=== PATIENT | female | born 1970 | race Caucasian/White ===

== ENCOUNTER 2024-03-13 23:26 | Emergency (ER) | payer OTHER, MEDICAID, SELFPAY ==
[2024-03-13 23:42] VITALS: BP 139/62; PULSE 72; RESP 18; TEMP 36.2; O2SAT 96; BMI 25.2
--- NOTE | 2024-03-14 00:04 | DI.RAD.S_ITS ---
PROCEDURE: XR LUMBAR SPINE MIN 4V INDICATIONS: Worsening chronic lumbar back pain TECHNIQUE: 5 views of the lumbar spine were acquired, including bilateral oblique views. COMPARISON: [facility], CT, CT LUMBAR SPINE WITHOUT CONTRAST, 06/26/2023, 10:31. FINDINGS: Bones: 5 nonrib-bearing vertebrae are present. There is stable bony alignment with unchanged appearance of grade 1 anterolisthesis of L4 on L5 secondary to moderate degenerative changes at this level. Prior CT showed no evidence for pars defects at this level. No acute vertebral body compression fractures. Multilevel lumbar spondylosis with advanced mid and lower lumbar facet arthropathy. No suspicious bony lesions. Soft tissues: Overlying bowel gas pattern is normal. No suspicious soft tissue calcifications. IUD projects in the lower midline pelvis. Surgical clips in the right upper quadrant likely related to prior cholecystectomy. Oblique images: No pars defects. IMPRESSION: Lumbar spine without acute osseous abnormalities. Redemonstration of grade 1 anterolisthesis of L4 on L5 secondary to moderate spondylitic changes at this level. No evidence for pars defects. Dictated by: Mikel Mayo M.D. on 03/14/2024 at 0:35 Approved by: Mikel Mayo M.D. on 03/14/2024 at 0:41
--- NOTE | 2024-03-14 00:04 | ED_ITS ---
HPI - Back Pain/Injury General Chief Complaint: Back Pain/Injury Stated Complaint: back pain Time Seen by Provider: 03/13/24 23:28 Source: patient History of Present Illness HPI Narrative: 53-year-old female presents requesting imaging of her back. Reports chronic back issues, states that 2 years ago she was scheduled to have surgery in [place], but they moved to [place] and she lost her referral. She walked here with her partner who is here for evaluation of right knee pain. She states that she has had increasing pain recently and wants imaging to see if she has hurt her back further. Denies bowel or bladder incontinence, denies saddle anesthesia. Taking Tylenol and ibuprofen as needed for pain at home. States that she has not seen orthopedic surgery since moving to [place] Related Data Previous Rx's Medication Instructions Recorded methocarbamol 500 mg tablet 500 mg PO TID #30 tabs 03/14/24 methylprednisolone 4 mg tablets in See Rx Instructions PO .COMPLEX 03/14/24 a dose pack (Medrol (Spencer)) #21 ea Allergies Allergy/AdvReac Type Severity Reaction Status Date / Time Opioids - Morphine Analogues AdvReac Mild Nausea Verified 03/14/24 00:26 Review of Systems Review of Systems Narrative: See HPI Patient History Social History Smoking Status: Former smoker Smoking Status: Former smoker Substance Use Type: does not use Exam Initial Vital Signs Initial Vital Signs: Vital Signs Temperature 97.1 F L 03/13/24 23:42 Pulse Rate 72 03/13/24 23:42 Respiratory Rate 18 03/13/24 23:42 Blood Pressure 139/62 03/13/24 23:42 Pulse Oximetry 96 03/13/24 23:42 Oxygen Delivery Method Room Air 03/13/24 23:42 Const: Awake, alert, no acute distress, nontoxic appearing MSK: No midline tenderness, full range of motion, pulses equal Skin: Warm, Dry, intact, no rashes Neuro: AO x3, CN II-XII grossly intact, moves all extremities, gait normal Course Orders Ordered: ED Orders 03/14/24 00:04 XR lumbar spine min 4V Stat Discontinued Medications Ketorolac Tromethamine (Ketorolac 30 Mg/Ml Vial) 30 mg IM NOW ONE Stop: 03/14/24 00:29 Last Admin: 03/14/24 00:43 Dose: 30 mg Documented By: EMERY Lidocaine (Lidocaine 5% Patch) 1 each TOP NOW ONE Stop: 03/14/24 00:29 Last Admin: 03/14/24 00:43 Dose: 1 each Documented By: EMERY Methocarbamol (Methocarbamol 500 Mg Tablet) 500 mg PO NOW ONE Stop: 03/14/24 00:29 Last Admin: 03/14/24 00:43 Dose: 500 mg Documented By: EMERY Vital Signs Vital signs: Vital Signs - 8 hr 03/13/24 23:42 03/14/24 01:13 Temperature 97.1 F L 98.4 F Pulse Rate 72 73 Respiratory Rate 18 18 Blood Pressure 139/62 164/91 H Pulse Oximetry 96 96 Oxygen Delivery Method Room Air Room Air MDM - Back Pain/Injury Differential Diagnosis Differential diagnosis: Likely lumbar radiculopathy, sciatica and strain of lumbar region MDM Narrative Medical decision making narrative: Patient here to check to see if her back is worse radiographically. States that her pain is getting worse but she was quite functional, states that she walked at least a mile to get to the hospital from where she was staying. There was no bowel or bladder incontinence, no saddle anesthesia. No indication for advan veronique imaging such as CT or MRI at this time. X-ray imaging ordered, results discussed with the patient. Recommended that patient follow up with Orthopedic surgery locally if she continues to experience back issues and a referral was provided. Steroids and muscle relaxers sent to pharmacy of choice. Discharge Plan Departure Patient Disposition: Home Clinical Impression: Lumbar back pain Instructions: DI for Low Back Pain Activity Restrictions/Additional Instructions: Continue to take Tylenol and ibuprofen as needed for pain. You may use the muscle relaxers as well for additional pain control. Follow up with Orthopedic surgery. Prescriptions: New methocarbamol 500 mg tablet 500 mg PO TID Qty: 30 0RF methylprednisolone [Medrol (Spencer)] 4 mg tablets,dose pack See Rx Instructions .ROUTE .COMPLEX Qty: 21 0RF Rx Instructions: for 6 days Referrals: Jonathan Piedra MD [Physician] - Stand Alone Forms: Patient Portal/API
--- NOTE | 2024-03-14 00:06 | PC.NURSE ---
Pt does report some episodes of leaking out in terms of urinary incontinence.
[2024-03-14] MEDS: methocarbamoL 500 MG TABLET PO (00:43)
[2024-03-14] MEDS: KETOROLAC 30 MG/ML VIAL IM (00:43)
[2024-03-14] MEDS: LIDOCAINE 5% PATCH 1 EACH TOP (00:43)
[2024-03-14 01:13] VITALS: BP 164/91; PULSE 73; RESP 18; TEMP 36.9; O2SAT 96
== END 2024-03-14 01:03 | disposition home or self-care (01) ==
PROVIDERS: Emergency Provider Emergency Medicine
DX: M54.50 Low back pain, unspecified (principal)
CPT/HCPCS: 72110; 96372; 99283; J1885

== ENCOUNTER 2025-01-16 22:57 | Emergency (ER) | payer OTHER, SELFPAY ==
[2025-01-16 23:13] VITALS: BP 169/105; PULSE 70; RESP 15; TEMP 37.1; O2SAT 99; BMI 25.2
--- NOTE | 2025-01-17 02:10 | ED_ITS ---
HPI - General Adult General Chief complaint: Ear Stated complaint: stats bug in rt ear Time Seen by Provider: 01/17/25 01:52 Source: patient Mode of arrival: Ambulatory History of Present Illness HPI narrative: 54-year-old woman with no significant medical issues complains about a bubbling sensation in both ears worse on the right than the left. Increasing over the last 2 weeks. This was not preceded by an upper respiratory infection, she has not had a sore throat or significant nasal congestion. No cough or chills. She does have pain behind the angle of the jaw bilaterally. Related Data Home Medications Medication Instructions Recorded Confirmed duloxetine 20 mg capsule,delayed 20 mg PO DAILY 01/16/25 01/16/25 release paliperidone 1.5 mg 1.5 mg PO BID 01/16/25 01/16/25 tablet,extended release 24 hr Previous Rx's Medication Instructions Recorded amoxicillin 500 mg capsule 500 mg PO TID #21 caps 01/17/25 Allergies Allergy/AdvReac Type Severity Reaction Status Date / Time Opioids - Morphine Analogues AdvReac Mild Nausea Verified 03/14/24 00:26 Review of Systems Review of Systems Narrative: Pertinent positive and negative findings as per HPI Patient History Social History Smoking Status: Current some day smoker Smoking Status: Current some day smoker tobacco type: vaping Exam Initial Vital Signs Initial Vital Signs: Vital Signs Temperature 98.7 F 01/16/25 23:13 Pulse Rate 70 01/16/25 23:13 Respiratory Rate 15 01/16/25 23:13 Blood Pressure 169/105 H 01/16/25 23:13 Pulse Oximetry 99 01/16/25 23:13 Oxygen Delivery Method Room Air 01/16/25 23:13 General: Alert appropriate in no acute distress HEENT: both tympanic membranes are erythematous with effusions. The effusion is more notable on the right in the erythema is more notable the left. There is no tympanic membrane rupture on either side. She is minor anterior cervical adenopathy. Posterior pharynx is unremarkable Respiratory: Able to speak in full sentences, no obvious respiratory distress Skin: No obvious rashes, warm and dry Neurologic: Grossly intact no obvious asymmetries or abnormalities Psych: appropriate insight and affect, cooperative Course Vital Signs Vital signs: Vital Signs - 8 hr 01/16/25 23:13 Temperature 98.7 F Pulse Rate 70 Respiratory Rate 15 Blood Pressure 169/105 H Pulse Oximetry 99 Oxygen Delivery Method Room Air Medical Decision Making MDM Narrative Medical decision making narrative: 54-year-old woman who is concerned that she may have a bug in her ear. Notes that for 2 weeks she has had a bubbling sensation in the ear right more than the left. On exam she has bilateral middle ear effusions with increasing erythema to tympanic membranes bilaterally. Minor anterior cervical adenopathy. No posterior pharyngeal erythema. Is most consistent with otitis media and given the increasing pain and symptoms we will opt to treat with 7 days of oral amoxicillin. Also suggested Sudafed to help with posterior pharyngeal erythema and encourage Eustachian tube drainage. Questions are answered and she is safe for discharge Discharge Plan Departure Patient Disposition: Home Clinical Impression: Otitis media Qualifiers: Otitis media type: suppurative Chronicity: acute Laterality: bilateral Recurrence: non-recurrent Spontaneous tympanic membrane rupture: without spontaneous rupture Qualified Code(s): H66.003 - Acute suppurative otitis media without spontaneous rupture of ear drum, bilateral Instructions: DI for Middle Ear Infection-Adult Activity Restrictions/Additional Instructions: Thank you for coming in today I am glad for both of us that you do not, in fact, have a bug in your ear ;) you do have fluid behind both tympanic membranes which is giving you that crackly sound. Both are a bit red around the edges and I believe that they are beginning to get infected which is why you are having pain down behind the angle of your jaw. I have given you a prescription for amoxicillin, I would recommend completing the 7 day course I would also recommend using Sudafed through the day and try to open your ear canals, like you would on an airplane, to get your middle ear to more effec tively drain. If you find that you are getting worse or develop any new symptoms, please feel free to return to the emergency department for further evaluation. Prescriptions: New amoxicillin 500 mg capsule 500 mg PO TID Qty: 21 0RF No Action duloxetine 20 mg capsule,delayed release(DR/EC) 20 mg PO DAILY paliperidone 1.5 mg tablet extended release 24 hr 1.5 mg PO BID Stand Alone Forms: Patient Portal/API/Survey
[2025-01-17 02:20] VITALS: BP 173/96; PULSE 60; RESP 15; O2SAT 97
== END 2025-01-17 02:20 | disposition home or self-care (01) ==
PROVIDERS: Emergency Provider Emergency Medicine
DX: H66.003 Acute suppurative otitis media without spontaneous rupture of ear drum, bilateral (principal)
CPT/HCPCS: 99281

== ENCOUNTER 2025-06-13 22:08 | Emergency (ER) | payer OTHER, SELFPAY ==
[2025-06-13 22:14] VITALS: BP 152/75; PULSE 60; RESP 17; TEMP 37.2; O2SAT 95; BMI 27.2
--- NOTE | 2025-06-13 22:21 | DI.RAD.S_ITS ---
PROCEDURE: XR CHEST 2V INDICATIONS: productive cough x 1 week TECHNIQUE: 2 views of the chest were acquired. COMPARISON: None. FINDINGS: Surgical changes and devices: None. Lungs and pleura: Lungs are clear. No pleural effusions or pneumothorax. Mediastinum: Mediastinal contours are normal. Heart size is normal. Bones and chest wall: No suspicious bony abnormalities. Soft tissues appear unremarkable. IMPRESSION: No acute cardiopulmonary abnormality is seen. Dictated by: Sin Deshpande M.D. on 06/13/2025 at 22:41 Approved by: Sin Deshpande M.D. on 06/13/2025 at 22:42
[2025-06-13 23:13] LABS: Influenza A - CEPHEID Flu A NEGATIVE (NEGATIVE); Influenza B - CEPHEID Flu B NEGATIVE (NEGATIVE)
[2025-06-13 23:15] LABS: COVID-19 CEPHEID 4-PLEX PCR Negative (Negative)
== END 2025-06-14 00:23 | disposition left against medical advice (07) ==
PROVIDERS: Emergency Provider Emergency Medicine
DX: R05.9 Cough, unspecified (principal); R06.02 Shortness of breath
CPT/HCPCS: 71046; 87637; 99281

== ENCOUNTER 2025-08-24 22:24 | Emergency (ER) | payer OTHER, SELFPAY ==
[2025-08-24 22:31] VITALS: BP 157/71; PULSE 73; RESP 16; TEMP 36.6; O2SAT 95; BMI 26.2
== END 2025-08-24 23:17 | disposition left against medical advice (07) ==
PROVIDERS: Emergency Provider Emergency Medicine
CPT/HCPCS: 99281

== ENCOUNTER 2025-08-25 07:34 | Emergency (ER) | payer OTHER, SELFPAY ==
[2025-08-25 07:54] VITALS: BP 131/61; PULSE 64; RESP 17; TEMP 36.6; O2SAT 96; BMI 26.2
[2025-08-25 08:10] VITALS: PULSE 65; O2SAT 96
--- NOTE | 2025-08-25 08:18 | PC.NURSE ---
Addendum entered by Brittany Shook RN 08/25/25 08:20: Pt also reports fatigue the past couple weeks Original Note: Pt reports onset of pain ~2wks ago just after travelling back from [place]. Pt also reports diarrhea starting ~1-1.5wks ago. Denies nausea and says diarrhea is intermittent. Pt reports increased pain with neck movement (side to side and tilting head back).
--- NOTE | 2025-08-25 08:29 | ED.NECK ---
HPI - Neck Pain/Injury General Chief Complaint: Neck Pain/Injury Stated Complaint: Stiff neck , achy all over x 2 weeks Time Seen by Provider: 08/25/25 08:18 Mode of arrival: Ambulatory History of Present Illness HPI Narrative: 55-year-old female with history of chronic low back pain here with 2 weeks of neck stiffness. On review of systems endorses some chills unknown fever. Symptoms started after returning from [place]. She does not recall if she had some neck discomfort on the plane. There was no neck injury or trauma. No chiropractic manipulations. No disturbances in speech or vision. On review of systems says her hands sometimes go numb and she sometimes experiences urinary incontinence UTI attributes to a herniated disc at L4-L5. She is not currently experiencing any numbness. Urinary incontinence is not a new issue for her. No severe headache. No rash. Related Data Home Medications ?Medication ?Instructions ?Recorded ?Confirmed duloxetine 20 mg capsule,delayed 20 mg PO DAILY 01/16/25 01/16/25 release paliperidone 1.5 mg 1.5 mg PO BID 01/16/25 01/16/25 tablet,extended release 24 hr Previous Rx's ?Medication ?Instructions ?Recorded amoxicillin 500 mg capsule 500 mg PO TID #21 caps 01/17/25 methocarbamol 500 mg tablet 750 mg (1.5 x 500 mg) PO Q8H PRN 08/25/25 muscle spasm 10 days #20 tabs Allergies Allergy/AdvReac Type Severity Reaction Status Date / Time Opioids - Morphine Analogues AdvReac Mild Nausea Verified 08/24/25 22:31 Review of Systems Review of Systems Narrative: Pertinent ROS obtained and negative except as stated in HPI Patient History tobacco type: vaping Exam Initial Vital Signs Initial Vital Signs: Vital Signs Temperature 98 F 08/25/25 07:54 Pulse Rate 64 08/25/25 07:54 Respiratory Rate 17 08/25/25 07:54 Blood Pressure 131/61 08/25/25 07:54 Pulse Oximetry 96 08/25/25 07:54 Oxygen Delivery Method Room Air 08/25/25 07:54 Constitutional: Well appearing, no acute distress Head: NCAT' Musculoskeletal: Normal-appearing neck and spine. No midline tenderness to palpation overlying step-off or deformity induration or erythema. Patient localizes pain to cervical paraspinal muscle bellies as well as bilateral trapezius muscle bellies. No tenderness to touch or warmth or erythema. Normal range of motion of the neck. No nuchal rigidity. Cardiovascular: RRR, no murmur or rub Pulmonary: CTA bilaterally, no respiratory distress Abdominal: soft, non-tender Extremities: No LE edema Skin: warm and dry, no diaphoresis Neurological: Alert and oriented x3. Cranial nerves grossly intact. 5/5 strength upper and lower extremities. 1+ patellar reflex bilat and 1+ triceps reflex bilat Course Orders Ordered: Discontinued Medications Acetaminophen (Acetaminophen 325 Mg Tablet) 975 mg PO NOW ONE Stop: 08/25/25 08:27 Last Admin: 08/25/25 08:39 Dose: 975 mg Documented By: EB Ketorolac Tromethamine (Ketorolac 30 Mg/Ml Vial) 30 mg IM NOW ONE Stop: 08/25/25 08:27 Last Admin: 08/25/25 08:39 Dose: 30 mg Documented By: EB Lidocaine (Lidocaine 5% Patch) 1 each TOP NOW ONE Stop: 08/25/25 08:27 Last Admin: 08/25/25 08:37 Dose: 1 each Documented By: EB Methocarbamol (Methocarbamol 500 Mg Tablet) 750 mg PO NOW ONE Stop: 08/25/25 08:27 Last Admin: 08/25/25 08:38 Dose: 750 mg Documented By: EB Vital Signs Vital signs: Vital Signs - 8 hr 08/25/25 07:54 Temperature 98 F Pulse Rate 64 Respiratory Rate 17 Blood Pressure 131/61 Pulse Oximetry 96 Oxygen Delivery Method Room Air MDM - Neck Pain/Injury Lab Data Labs: Lab Results 08/25/25 Range/Units 08:45 Chlamy pneumoniae PCR Not detected (Not Detect) Adenovirus (PCR) Not detected (Not Detect) B. pertussis DNA (PCR) Not detected (Not Detect) B.parapertussis DNA PCR Not detected (Not Detecte) Coronavirus OC43 (PCR) Not detected (Not Detect) Coronavirus HKU1 (PCR) Not detected (Not Detect) Coronavirus 229E (PCR) Not detected (Not Detect) SARS-CoV-2 (PCR) Not detected (Not Detecte) Coronavirus NL63 (PCR) Not detected (Not Detect) Human Metapneumovir PCR Not detected (Not Detect) Influenza Type A (PCR) Not detected (Not Detect) Influenza Type B (PCR) Not detected (Not Detect) M. pneumoniae (PCR) Not detected (Not Detect) Parainfluenza 1 (PCR) Not detected (Not Detect) Parainfluenza 2 (PCR) Not detected (Not Detect) Parainfluenza 3 (PCR) Not detected (Not Detect) Parainfluenza 4 (PCR) Not detected (Not Detect) RSV (PCR) Not detected (Not Detect) Entero/Rhino (PCR) Not detected (Not Detect) MDM Narrative Medical decision making narrative: History and exam is not consistent with meningitis nor acute spinal cord impingement syndrome. Pain is all paraspinal and I favor musculoskeletal etiology given exam and history. 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 Advanced imaging of the C-spine is not indicated today with lack of mechanism of injury or midline tenderness or signs symptoms of cord impingement. Did offer supportive treatment including Robaxin, Toradol, Tylenol, lidocaine patch On reassessment at 10:20 a.m. the patient is resting comfortably in bed. She reports her neck is feeling better. She continues to have full range of motion. Respiratory panel is negative. Counseled on supportive care at home for musculoskeletal pain and encouraged PCP followup, possible PT referral. Return precautions discussed and provided prior to discharge Discharge Plan Departure Patient Disposition: Home Clinical Impression: Strain of neck muscle Instructions: DI for Neck Pain Activity Restrictions/Additional Instructions: I am glad that you are feeling better. I think that your pain is musculoskeletal in nature such as due to a spasm or strain. This should improve over time but thinks you can do to help herself include taking [id number] medication and seeking referral to physical therapy. For pain please take ibuprofen 800 mg every 8 hours, acetaminophen 1000 mg every 6 hours. You may find topical therapy such as heat/ice, menthol, lidocaine or diclofenac ointment helpful I have also prescribed you a muscle relaxer to use at home as needed. Return to the emergency department for worsening or severe neck pain despite treatment plan or new symptoms such as severe headache, vomiting, rash, fever Prescriptions: New methocarbamol 500 mg tablet 750 mg PO Q8H PRN (Reason: muscle spasm) 10 Days Qty: 20 0RF No Action duloxetine 20 mg capsule,delayed release(DR/EC) 20 mg PO DAILY paliperidone 1.5 mg tablet extended release 24 hr 1.5 mg PO BID amoxicillin 500 mg capsule 500 mg PO TID Qty: 21 0RF Stand Alone Forms: Patient Portal/API
[2025-08-25 08:30] VITALS: PULSE 67; O2SAT 93
[2025-08-25] MEDS: LIDOCAINE 5% PATCH 1 EACH TOP (08:37)
[2025-08-25] MEDS: KETOROLAC 30 MG/ML VIAL IM (08:39)
[2025-08-25] MEDS: ACETAMINOPHEN 325 MG TABLET 975 MG PO (08:39)
[2025-08-25 09:54] LABS: Coronavirus NL 63 Not Detected (Not Detect); SARS- CoV-2 Not Detected (Not Detecte)
[2025-08-25 10:54] VITALS: BP 162/77; PULSE 55; RESP 16; O2SAT 98
== END 2025-08-25 10:55 | disposition home or self-care (01) ==
PROVIDERS: Emergency Provider Student in an Organized Health Care Education/Training Program
DX: S16.1XXA Strain of muscle, fascia and tendon at neck level, initial encounter (principal)
CPT/HCPCS: 87633; 96372; 99283; 99284; J1885

== ENCOUNTER 2025-09-20 21:12 | Emergency (ER) | payer OTHER, SELFPAY ==
[2025-09-20 21:19] VITALS: BP 171/81; PULSE 72; RESP 22; TEMP 36.2; O2SAT 99; BMI 27.2
[2025-09-20 22:41] VITALS: BP 192/104; PULSE 70; O2SAT 98
[2025-09-20 23:01] VITALS: BP 172/79; PULSE 62; O2SAT 96
[2025-09-20 23:13] VITALS: BP 172/79; PULSE 64; O2SAT 97
--- NOTE | 2025-09-21 | ED.NECK ---
HPI - Neck Pain/Injury General Chief Complaint: Neck Pain/Injury Stated Complaint: neck pain, worse / dizzy/headache , nausea Time Seen by Provider: 09/20/25 23:16 Mode of arrival: Ambulatory History of Present Illness HPI Narrative: 55yo female complains of posterior neck and headache pain, seen here weeks ago for same symptoms, was prescribed methocarbamo/Robaxinl that she feels is not helping, taking OTC analgesics with little relief. Also has intermittent nausea without emesis. Some non vertiginous intermittent dizziness. Denies chest pain or shortness of breath. No focal weakness to face arm leg. No focal numbness to face arm leg. Denies injury trauma new activities. Denies prior neck spine injections or surcial interventions. Can move her neck well, denies photophobia symptoms. Related Data Home Medications ?Medication ?Instructions ?Recorded ?Confirmed duloxetine 20 mg capsule,delayed 20 mg PO DAILY 01/16/25 01/16/25 release paliperidone 1.5 mg 1.5 mg PO BID 01/16/25 01/16/25 tablet,extended release 24 hr Previous Rx's ?Medication ?Instructions ?Recorded amoxicillin 500 mg capsule 500 mg PO TID #21 caps 01/17/25 cyclobenzaprine 10 mg tablet 10 mg PO TID PRN muscle spasm #14 09/21/25 tabs Allergies Allergy/AdvReac Type Severity Reaction Status Date / Time Opioids - Morphine Analogues AdvReac Mild Nausea Verified 09/20/25 21:19 Patient History tobacco type: vaping Exam Narrative Exam Narrative: GENERAL: Well-developed patient, in mild distress. HEAD: Atraumatic. Normocephalic. EYES: Pupils equal round and reactive. Extraocular motions intact. No scleral icterus. No injection or drainage. ENT: Nose without bleeding, purulent drainage. Throat without erythema, tonsillar hypertrophy or exudate. Airway patent. NECK: Trachea midline. Non tender CARDIOVASCULAR: Regular rate and rhythm without murmurs, gallops, or rubs. RESPIRATORY: Clear to auscultation. Breath sounds equal bilaterally. No wheezes, rales, or rhonchi. GASTROINTESTINAL: Abdomen soft, non-tender, nondistended. EXTREMITIES: No edema or joint tenderness. BACK: Nontender without deformity or crepitance. No flank tenderness. NEURO: AOx3. Motor functions grossly nonfocal. SKIN: No rash or erythema of visible areas Initial Vital Signs Initial Vital Signs: Vital Signs Temperature 97.1 F L 09/20/25 21:19 Pulse Rate 72 09/20/25 21:19 Respiratory Rate 22 09/20/25 21:19 Blood Pressure 171/81 H 09/20/25 21:19 Pulse Oximetry 99 09/20/25 21:19 Oxygen Delivery Method Room Air 09/20/25 21:19 Course Orders Ordered: Discontinued Medications Cyclobenzaprine HCl (Cyclobenzaprine 10 Mg Tablet) 10 mg PO NOW ONE Stop: 09/21/25 00:09 Last Admin: 09/21/25 00:20 Dose: 10 mg Documented By: SANJIV Sodium Chloride (Normal Saline 0.9%) 1,000 mls @ 1,000 mls/hr IV BOLUS ONE Stop: 09/21/25 03:42 Last Infusion: 09/21/25 03:55 Dose: Infused Documented By: Admin: 09/21/25 02:52 Dose: 1,000 mls/hr Documented By: SANJIV Vital Signs Vital signs: Vital Signs - 8 hr 09/21/25 02:35 09/21/25 02:35 09/21/25 03:15 Pulse Rate 64 58 L Respiratory Rate 14 Blood Pressure 148/72 H Pulse Oximetry 93 94 Oxygen Delivery Method Room Air Room Air 09/21/25 03:18 09/21/25 03:18 09/21/25 03:30 Pulse Rate 52 L 63 Respiratory Rate Blood Pressure 146/71 H Pulse Oximetry 95 95 Oxygen Delivery Method Room Air Room Air 09/21/25 03:30 09/21/25 03:57 09/21/25 03:57 Pulse Rate 60 Respiratory Rate 18 Blood Pressure 145/79 H 159/75 H Pulse Oximetry 97 Oxygen Delivery Method Room Air MDM - Neck Pain/Injury Lab Data Attestation: I reviewed the patient's lab results. Lab results narrative: White blood cell count 8300, hemoglobin 15.1, platelets adequate. Glucose 98. Normal renal function, serum CO2, electrolytes. Liver functions unremarkable. 09/21/25 00:17 09/21/25 00:17 Labs: Lab Results 09/21/25 Range/Units 00:17 WBC 8.3 (4.5-11.0) X10^3/uL RBC 4.96 (4.0-5.2) X10^6/uL Hgb 15.1 (12.0-16.0) g/dL Hct 44.8 (36-46) % MCV 90.3 (80-100) fL MCH 30.3 (26-34) PG MCHC 33.6 (30-36) % RDW 13.5 (11.6-14.8) % Plt Count 307 (150-400) X10^3/uL Neut % (Auto) 53.9 (50-75) % Lymph % (Auto) 27.6 (25-40) % Armstrong % (Auto) 10.5 (3-14) % Eos % (Auto) 4.0 (2-4) % Baso % (Auto) 4.0 H (0-2) % Neut # (Auto) 4500 (0895-4983) /uL Lymph # (Auto) 2300 (2607-9265) /uL Armstrong # (Auto) 900 (0-900) /uL Eos # (Auto) 300 (0-450) /uL Baso # (Auto) 300 H (0-100) /uL PT 10.2 (9.4-12.5) SECONDS INR 0.9 (0.9-1.3) Sodium 138 (137-145) mmol/L Potassium 3.5 (3.4-5.1) mmol/L Chloride 102 (98-107) mmol/L Carbon Dioxide 27 (22-32) mmol/L BUN 13 (7-17) mg/dL Creatinine 0.67 (0.52-1.04) mg/dL Estimated GFR > 60 (>60) mL/min BUN/Creatinine Ratio 19.4 (6-22) Glucose 98 (70-99) mg/dL Calcium 9.4 (8.4-10.2) mg/dL Total Bilirubin 0.1 L (0.2-1.3) mg/dL AST 27 (14-36) IU/L ALT 19 (<35) IU/L Alkaline Phosphatase 80 (38-126) U/L Total Protein 7.4 (6.3-8.2) g/dL Albumin 4.2 (3.5-5.0) g/dL Globulin 3.2 (1.7-4.1) g/dL Albumin/Globulin Ratio 1.3 (1.0-2.8) MDM Narrative Medical decision making narrative: 55yo female with ongoing weeks duration posterior neck pain with some occipital headache, no fevers chills photophobia, can move neck, no focal neuro symptoms weakness/numbness. Afebrile, SIRS screen negative. Moves nek well. Intermittent dizziness not present. Not responing to previously prescribed Robaxin muscle relaxant. Willing to try flexeril. Requests advanced imaging. Non toxic appearing, doubt meningitis and need for LP presently. Suspected mucle tension headache with posterior neck strain, doubt meningitis, consider DDx less likley ICH, intracranial mass, carotid/verterbral dissection. Requests imaging. CT Head, CT Cspine, CTA Head/Neck studies ordered. Lab data: White blood cell count 8300, hemoglobin 15.1, platelets adequate. Glucose 98. Normal renal function, serum CO2, electrolytes. Liver functions unremarkable. CT head noncontrast. Impressions: ?No acute intracranial findings.? See tele radiology report. CT cervical spine noncontrast. Impressions: ?No acute findings. Moderately advanced multilevel degenerative changes throughout the cervical spine.? See tele radiology report. CT angio head and neck vessels. Impressions: ?There is slight hyperdense fluid in the pericardium surrounding the proximal aortic arch. Difficult to accurately measure fluid density due to presence of contrast in the aorta. No obvious evidence of aortic dissection or aneurysm. Additional imaging with CTA chest scan as clinically warranted. Otherwise patent head and neck CTA.See tele radiology report. CTA chest additionally ordered, as above. CTA chest. Impressions: ?No acute intrathoracic abnormalities appreciated. No pulmonary embolism was identified. Borderline aneurysmal dilatation of the ascending thoracic aorta. Right lower lobe liver lesion of uncertain etiology and significance. If not previously imaged this will require follow up.? See tele radiology report Incidental liver lesion noted, discussed with patient, further workup as outpatient. Patient feels better after oral cyclobenzaprine/Flexeril, Rx sent to requested pharmacy, to take in place of methocarbamol/Robaxin recently prescribed. Took oral fluids, ambulated, DC home with who agreed with plan. Discharge Plan Departure Patient Disposition: Home Clinical Impression: Strain of neck muscle, Lesion of liver Instructions: DI for Neck Pain Activity Restrictions/Additional Instructions: Recent visit for neck pain, not responsive to prescribed methocarbamol/Robaxin muscle relaxant medication. Request for imaging, posterior headache and neck pain. No fever on triage. Moving neck well, some tenderness paraspinal. Requests for imaging. CT head showed no acute changes. CT cervical spine showed no acute changes. CT angiogram of the head and neck vessels showed no thrombosis or dissection of the vessels or acute changes. CT head and neck vessels did show some concern possible at aortic root, small amount of fluid of unclear significance, no dissection/tearing of the vessel, recommendation for CT angiogram of the chest. CTA angiogram of the chest was obtained, no definite acute findings, did show some slight dilatation of the thoracic aorta that can be further follow up as an outpatient. CT angiogram of the chest showed no acute chest findings, but did show incidental right liver lesion in the right lobe of the liver of unclear significance in etiology, further workup as an outpatient for now. Trial of cyclobenzaprine as above. Recheck symptoms with your regular doctor in the next couple of days. Return to this/nearest emergency department for any change worsening symptoms or any concerns prior. Prescriptions: New cyclobenzaprine 10 mg tablet 10 mg PO TID PRN (Reason: muscle spasm) Qty: 14 0RF No Action duloxetine 20 mg capsule,delayed release(DR/EC) 20 mg PO DAILY paliperidone 1.5 mg tablet extended release 24 hr 1.5 mg PO BID amoxicillin 500 mg capsule 500 mg PO TID Qty: 21 0RF Stand Alone Forms: Patient Portal/API
--- NOTE | 2025-09-21 00:08 | DI.CT.S_ITS ---
PROCEDURE: CT HEAD/BRAIN WO CON INDICATIONS: headache posterior TECHNIQUE: Noncontrast 4.5 mm thick angled axial sections acquired from the foramen magnum to the vertex, with coronal and sagittal reformats. For radiation dose reduction, the following was used: automated exposure control, adjustment of mA and/or kV according to patient size. COMPARISON: None. FINDINGS: Image quality: Diagnostic. CSF spaces: Basal cisterns are patent. No extra-axial fluid collections. Ventricles are normal in size and shape. Brain: No midline shift. No intracranial mass effect or hemorrhage. Mendoza- white matter interface is normal. Skull and face: Calvarium and visualized facial bones are intact, without suspicious lesions. Sinuses: Visualized sinuses and mastoids are clear. IMPRESSION: Negative CT head without contrast. If symptoms persist or worsen, or there is high clinical suspicion of intracranial abnormality, MRI could be performed. Dictated by: Sacha Khan M.D. on 09/21/2025 at 7:57 Approved by: Sacha Khan M.D. on 09/21/2025 at 8:01
--- NOTE | 2025-09-21 00:09 | DI.CT.S_ITS ---
PROCEDURE: CT ANGIO HEAD AND NECK INDICATIONS: headache, neck pain TECHNIQUE: After the administration of intravenous contrast, 1 mm thick sections acquired from the aortic arch through the [place]. MIP reformats of the arterial vasculature were utilized. COMPARISON: None. FINDINGS: Cerebral CT Angiogram: Internal carotid arteries: No acute findings. Intracranial ICA are patent with no significant stenosis. No occlusion. No aneurysm. Anterior cerebral arteries: Unremarkable. No significant stenosis. No occlusion. No aneurysm. Middle cerebral arteries: Unremarkable. No significant stenosis. No occlusion. No aneurysm. Posterior cerebral arteries: Unremarkable. No significant stenosis. No occlusion. No aneurysm. Basilar artery: Unremarkable. No significant stenosis. No occlusion. No aneurysm. Vertebral arteries: Unremarkable as visualized. Dural venous sinuses: Unremarkable given phase of enhancement. Other: Arterial phase appearance of the brain parenchyma is unremarkable. Neck CT Angiogram: Internal carotid arteries: Unremarkable. No significant stenosis. No dissection or occlusion. Common carotid arteries: Unremarkable. No significant stenosis. No dissection or occlusion. External carotid arteries: Unremarkable. No occlusion. Vertebral arteries: Unremarkable. No significant stenosis. No dissection or occlusion. Aortic Arch and Mediastinum: Partially visualized aortic arch unremarkable without evidence of aneurysm. Origins of the great vessels unremarkable. Other: Fluid in the pericardial recesses noted. Bilateral breast prosthesis with intracapsular rupture IMPRESSION: Unremarkable CT angiogram of the head and neck without evidence of large vessel occlusion, aneurysm or vascular malformation. Pericardial effusion noted in the upper pericardial recesses. Consider follow- up CT angiogram chest Note: This final report is concordant with the preliminary after-hours interpretation provided by [facility] Approved by: Jonathan Gutierrez M.D. on 09/21/2025 at 8:52
--- NOTE | 2025-09-21 00:09 | DI.CT.S_ITS ---
PROCEDURE: CT CERVICAL SPINE WO CON INDICATIONS: posterior neck pain TECHNIQUE: Noncontrast 3 mm thick sections acquired from the skull base to the T4 level. Sagittal and coronal reformats were then constructed. For radiation dose reduction, the following was used: automated exposure control, adjustment of mA and/or kV according to patient size. COMPARISON: None. FINDINGS: Image quality: Diagnostic. Some images are limited by beam hardening artifacts, patient motion artifacts. Incidental note is made of aneurysmal dilatation of the asc no abnormal prevertebral soft tissue swelling. Reversal of the normal cervical lordosis some of which may be artifact from positioning. ending aorta partially imaged measures up to approximately 4.3 cm diameter. Mild calcifications of the aortic arch incidentally noted. Degenerative changes of the cervical spine with disc space narrowing, osteophytes, uncovertebral and facet hypertrophic changes most notably at C3-4, C4-5, C5-6, C6-7 with [id number] bilateral neural foraminal narrowing. No CT evidence of central stenosis. Minimal 2 mm anterolisthesis C3 on C4 commonly related to degenerative changes although in the setting of trauma minimal posttraumatic subluxation not excluded. No CT evidence of fracture. IMPRESSION: Degenerative changes. Minimal 2 mm anterolisthesis C3 on C4. Aneurysmal dilatation ascending aorta 4.3 cm. Dictated by: Sacha Khan M.D. on 09/21/2025 at 8:01 Approved by: Sacha Khan M.D. on 09/21/2025 at 8:05
[2025-09-21] MEDS: CYCLOBENZAPRINE 10 MG TABLET PO (00:20)
[2025-09-21 00:53] LABS: Add Manual Diff / Slide Review NO; Hematocrit 44.8 % (36-46); Hemoglobin 15.1 g/dL (12.0-16.0); Lymphocytes Absolute Auto 2300 /uL (1100-4500); Mean Corpuscular HGB Conc 33.6 % (30-36); Mean Corpuscular Hemoglobin 30.3 PG (26-34); Mean Corpuscular Volume 90.3 fL (80-100); Platelet Count 307 X10^3/uL (150-400)
[2025-09-21 01:00] LABS: INR 0.9 (0.9-1.3); Prothrombin Time 10.2 SECONDS (9.4-12.5)
[2025-09-21 01:44] LABS: Alanine Aminotransferase 19 IU/L (<35); Albumin 4.2 g/dL (3.5-5.0); Albumin Globulin Ratio 1.3 (1.0-2.8); Alkaline Phosphatase 80 U/L (38-126); Blood Urea Nitrogen 13 mg/dL (7-17); Calcium 9.4 mg/dL (8.4-10.2); Carbon Dioxide 27 mmol/L (22-32); Chloride 102 mmol/L (98-107); Estimated Glomerular Filt Rate > 60 mL/min (>60); Globulin 3.2 g/dL (1.7-4.1); Glucose 98 mg/dL (70-99); HEMOLYSIS 19 (0-50); Potassium 3.5 mmol/L (3.4-5.1); Sodium 138 mmol/L (137-145); Total Protein 7.4 g/dL (6.3-8.2)
[2025-09-21 02:35] VITALS: BP 148/72; PULSE 64; O2SAT 93
--- NOTE | 2025-09-21 02:35 | DI.CT.S_ITS ---
PROCEDURE: CT ANGIO CHEST INDICATIONS: aortic arch fluid on CTA H/N study, advised CTA Chest TECHNIQUE: After the administration of intravenous contrast, 2 mm thick sections acquired from the pulmonary apices to the posterior costophrenic angles. 3-dimensional maximum intensity projection (MIP) coronal and sagittal reformats were then acquired through the thorax. For radiation dose reduction, the following was used: automated exposure control, adjustment of mA and/or kV according to patient size. COMPARISON: None. FINDINGS: Image quality: Diagnostic. Pulmonary arteries: Pulmonary arteries are normal in size, and demonstrate no intraluminal filling defects to suggest central pulmonary embolism. Lower Neck: No enlarged lymph nodes. Thyroid: No thyroid nodules which require sonographic follow up, per consensus guidelines. Axillae: No enlarged lymph nodes. Chest Wall: Bilateral breast implants with intracapsular rupture Bones: Unremarkable. Lungs and Pleura: No pneumothorax or pleural effusions. No consolidation or suspicious nodules. Heart: Heart size is normal. Trace physiologic pericardial fluid in the superior pericardial recesses. No pericardial effusion. Thoracic Vessels: No aortic aneurysm. Ascending thoracic aorta measures 3.5 cm on coronal reformat. Mediastinum and Kathleen: No enlarged lymph nodes. Esophagus: No wall thickening. No hiatal hernia. Upper Abdomen: Cholecystectomy. Low-density lesion in the right hepatic lobe measures up to 4.2 cm. IMPRESSION: No evidence of pulmonary embolism, aortic dissection or aneurysm. Physiologic fluid in the upper pericardial recesses. Low-density right hepatic 4.3 cm lesion. Consider dedicated hepatic imaging for further evaluation Note: This final report is concordant with the preliminary after-hours interpretation provided by [facility] Approved by: Jonathan Gutierrez M.D. on 09/21/2025 at 8:58
--- NOTE | 2025-09-21 02:49 | PC.NURSE ---
Pt to imaging via ED stretcher with medical imaging director
[2025-09-21] MEDS: SODIUM CHLORIDE 0.9% 1,000 ML 1000 ML IV (02:52)
[2025-09-21 03:15] VITALS: PULSE 58; RESP 14; O2SAT 94
[2025-09-21 03:18] VITALS: BP 146/71; PULSE 52; O2SAT 95
[2025-09-21 03:30] VITALS: BP 145/79; PULSE 63; O2SAT 95
[2025-09-21 03:57] VITALS: BP 159/75; PULSE 60; RESP 18; O2SAT 97
== END 2025-09-21 04:05 | disposition home or self-care (01) ==
PROVIDERS: Emergency Provider Emergency Medicine
DX: S16.1XXA Strain of muscle, fascia and tendon at neck level, initial encounter (principal); K76.9 Liver disease, unspecified; R51.9 Headache, unspecified
CPT/HCPCS: 36415; 70450; 70496; 70498; 71275; 72125; 80053; 85025; 85610; 96360; 99284; J7030; Q9967

== ENCOUNTER 2025-09-26 18:06 | Emergency (ER) | payer OTHER, SELFPAY ==
[2025-09-26 18:12] VITALS: BP 174/70; PULSE 74; RESP 18; TEMP 37; O2SAT 95; BMI 26.2
--- NOTE | 2025-09-26 18:17 | DI.CT.S_ITS ---
PROCEDURE: CT ABDOMEN PELVIS W CON
[2025-09-26] MEDS: ONDANSETRON 4 MG/2 ML INJ IV (18:33)
--- NOTE | 2025-09-26 18:47 | ED_ITS ---
HPI - Neck Pain/Injury
--- NOTE | 2025-09-26 18:47 | ED.NECK ---
HPI - Neck Pain/Injury General Chief Complaint: Neck Pain/Injury Stated Complaint: pc ref, Neck pain Time Seen by Provider: 09/26/25 18:13 Mode of arrival: Ambulatory History of Present Illness HPI Narrative: Patient is a 55-year-old female presenting today for need for ongoing workup. She was seen evaluated here on 09/21/[address]25 she had a head CT, CT head and neck angio had a chest CT as well found a liver lesion. She was trying to follow up with her primary care who then ordered x-rays she is not sure what x-rays. She has been feeling nauseous but no vomiting. No chest pain. She reports that she was feeling really nauseous today and decided to come into the ED Related Data Home Medications ?Medication ?Instructions ?Recorded ?Confirmed duloxetine 20 mg capsule,delayed 20 mg PO DAILY 01/16/25 01/16/25 release paliperidone 1.5 mg 1.5 mg PO BID 01/16/25 01/16/25 tablet,extended release 24 hr Previous Rx's ?Medication ?Instructions ?Recorded amoxicillin 500 mg capsule 500 mg PO TID #21 caps 01/17/25 cyclobenzaprine 10 mg tablet 10 mg PO TID PRN muscle spasm #14 09/21/25 tabs ondansetron 4 mg disintegrating 4 mg PO Q8H PRN nausea and 09/26/25 tablet vomiting #10 tabs Allergies Allergy/AdvReac Type Severity Reaction Status Date / Time Opioids - Morphine Analogues AdvReac Mild Nausea Verified 09/20/25 21:19 Patient History Social History Smoking Status: Current every day smoker Smoking Status: Current every day smoker tobacco type: vaping Exam Initial Vital Signs Initial Vital Signs: Vital Signs Temperature 98.6 F 09/26/25 18:12 Pulse Rate 74 09/26/25 18:12 Respiratory Rate 18 09/26/25 18:12 Blood Pressure 174/70 H 09/26/25 18:12 Pulse Oximetry 95 09/26/25 18:12 Oxygen Delivery Method Room Air 09/26/25 18:12 GENERAL: Alert pleasant well-appearing 55-year-old female and in no acute distress. HEENT: Head atraumatic,EOMI, pupils reactive, face symmetric, moist mucous membranes CARDIOVASCULAR: Regular rate and rhythm without murmurs, rubs or gallops. RESPIRATORY: Breath sounds equal bilaterally, no wheezes rales or rhonchi. ABDOMEN: Soft, nontender. Normoactive bowel sounds all 4 quadrants. No guarding or rebound. EXTREMITIES: Normal range of motion, no clubbing or edema. Neurovascularly intact NEUROLOGICAL: Alert and oriented x4.Normal gait and speech. Cranial nerves II through XII grossly intact. SKIN: Warm, dry, no laceration, no petechiae, no rashes or lesions. Course Orders Ordered: ED Orders 09/26/25 18:17 CT abdomen pelvis w con Stat 09/26/25 18:55 CBC Auto Diff [Complete Blood Count AUTO DIFF] Stat CMP [Comprehensive Metabolic Panel] Stat Lipase Stat 09/26/25 20:38 Urine Culture Stat Urine Microscopic Stat Discontinued Medications Ondansetron HCl (Ondansetron 4 Mg/2 Ml Inj) 4 mg IV NOW ONE Stop: 09/26/25 18:19 Last Admin: 09/26/25 18:33 Dose: 4 mg Documented By: BEKA Vital Signs Vital signs: Vital Signs - 8 hr 09/26/25 18:12 09/26/25 20:51 Temperature 98.6 F Pulse Rate 74 55 L Respiratory Rate 18 18 Blood Pressure 174/70 H 133/84 Pulse Oximetry 95 96 Oxygen Delivery Method Room Air Room Air MDM - Neck Pain/Injury Lab Data 09/26/25 18:55 09/26/25 18:55 Labs: Lab Results 09/26/25 09/26/25 Range/Units 18:55 20:38 WBC 7.7 (4.5-11.0) X10^3/uL RBC 3.75 L (4.0-5.2) X10^6/uL Hgb 11.6 L (12.0-16.0) g/dL Hct 34.4 L (36-46) % MCV 91.7 (80-100) fL MCH 30.9 (26-34) PG MCHC 33.6 (30-36) % RDW 13.6 (11.6-14.8) % Plt Count 239 (150-400) X10^3/uL Neut % (Auto) 67.8 (50-75) % Lymph % (Auto) 20.5 L (25-40) % [place] % (Auto) 7.5 (3-14) % Eos % (Auto) 3.2 (2-4) % Baso % (Auto) 1.0 (0-2) % Neut # (Auto) 5200 (1257-3302) /uL Lymph # (Auto) 1600 (7905-2076) /uL [place] # (Auto) 600 (0-900) /uL Eos # (Auto) 200 (0-450) /uL Baso # (Auto) 100 (0-100) /uL Sodium 137 (137-145) mmol/L Potassium 3.8 (3.4-5.1) mmol/L Chloride 103 (98-107) mmol/L Carbon Dioxide 27 (22-32) mmol/L BUN 27 H (7-17) mg/dL Creatinine 0.85 (0.52-1.04) mg/dL Estimated GFR > 60 (>60) mL/min BUN/Creatinine Ratio 31.8 H (6-22) Glucose 106 H (70-99) mg/dL Calcium 9.3 (8.4-10.2) mg/dL Total Bilirubin 0.3 (0.2-1.3) mg/dL AST 24 (14-36) IU/L ALT 18 (<35) IU/L Alkaline Phosphatase 72 (38-126) U/L Total Protein 7.4 (6.3-8.2) g/dL Albumin 4.3 (3.5-5.0) g/dL Globulin 3.1 (1.7-4.1) g/dL Albumin/Globulin Ratio 1.4 (1.0-2.8) Lipase 71 (23-300) U/L Urine RBC 1-5/hpf (0-5/HPF) Urine WBC 1-5/hpf (0-5/HPF) Ur Squamous Epith Cells 1-5 /hpf (0-5/HPF) Urine Bacteria Occasional (0-1) (None) Ur Culture Indicated? TNP Vol Urine Centrifuged 10ml (spun) Urine Dip Bedside Urine Glucose Negative Bedside Urine Bilirubin - Negative Bedside Urine Ketone - Negative Urine Specific [place] 1.010 Bedside Urine Occult Blood + Bedside Urine pH 6.0 Bedside Urine Protein - Negative Bedside Urine Urobilinogen - Negative Bedside Urine Nitrite - Negative Bedside Urine Leukocytes - Negative Esterase Imaging Data CT scan - abdomen/pelvis: Radiologist's Impression: PROCEDURE: CT ABDOMEN PELVIS W CON INDICATIONS: liver lesion nausea TECHNIQUE: After the administration of intravenous contrast, axial sections acquired from the lung bases to the pubic symphysis. Coronal and sagittal reformats were performed. For radiation dose reduction, the following was used: automated exposure control, adjustment of mA and/or kV according to patient size. COMPARISON: [facility], CT, CT ANGIO CHEST, 09/21/2025, 3:57. FINDINGS: Image quality: Diagnostic. Lower Chest: Mammoplasties. Trace pericardial effusion. Top normal heart size. ABDOMEN: Liver: 3.7 x 2.6 cm right lobe liver lesion on image 29 of series 6 likely represents an atypical hemangioma. No other liver lesions. Gallbladder: Absent Biliary ducts: No biliary dilation. Pancreas: No ductal dilation. Spleen: Size is within normal limits. Adrenal Glands: No adrenal nodules. Kidneys and Ureters: Multiple left renal stones which are nonobstructing. There are areas of cortical volume loss in the left kidney consistent with remote insults. Left extrarenal pelvis. No obstructing ureteral stones identified. Stomach and Bowel: Normal colonic caliber, without significant wall thickening. Sigmoid diverticulosis. No CT evidence of acute diverticulitis. Peritoneum: No abnormal intraperitoneal fluid. No free air. Ventral Wall: No significant ventral hernia. Abdominal Nodes: No retroperitoneal or mesenteric adenopathy by size criteria. Vessels: Aorta and inferior vena cava are normal in size. PELVIS: Pelvic Organs: Uterus is surgically absent. No adnexal masses.. Bladder: No bladder wall thickening, accounting for underdistention. Pelvic Nodes: No enlarged lymph nodes. Miscellaneous: No inguinal hernias are seen. Bones: No aggressive osseous abnormality. Lumbar degenerative change. Anterolisthesis of L4 on L5 by 7 mm with posterior disc bulge and facet and ligament hypertrophy results in severe canal stenosis. IMPRESSION: 1. Right lobe liver lesion most likely represents an atypical hemangioma. However, consider nonemergent multiphase MRI for confirmation. 2. No acute abdominal process identified. 3. Remote cholecystectomy and hysterectomy. 4. Sigmoid diverticulosis. 5. Left nephrolithiasis. 6. Note made of severe canal stenosis at L4-L5. Dictated by: Tim Moralez M.D. on 09/26/2025 at 19:45 MDM Narrative Medical decision making narrative: MDM CC: Nausea Complicating co-morbidities: None Data collected from: Patient Medical records reviewed: ED record, chronic low back pain with ongoing neck issues Differential considered: Diverticulitis cholecystitis cholelithiasis liver mass metastatic disease Exam documented above, pertinent findings include: Alert very well-appearing 55-year-old female abdomen is soft nontender no peritoneal signs Lab Test results independently reviewed as above. Pertinent findings: CBC no leukocytosis no anemia CMP no electrolyte abnormality no [id number] Urinalysis negative Imaging studies independently reviewed: CT abdomen pelvis shows a liver hemangioma without any other abdominal pathology Consultations: None Treatments: none Re-evaluations: Patient is feeling better after Zofran she is ambulatory Discussion: Patient 55-year-old female presenting today with some nausea she is concerned because she was found to have a liver lesion. It has been confirmed that she has a liver hemangioma by CT and blood work is overall reassuring. No need for any further imaging today. She is given Zofran in his feeling better. She has no vomiting. At this time monitor as outpatient. Discharge Plan Departure Patient Disposition: Home Clinical Impression: Hemangioma Instructions: Hemangioma Activity Restrictions/Additional Instructions: *You have been diagnosed with hemangioma *What to do: At this time this is a totally benign lesion on your liver not likely causing any problems, may need monitoring by your primary care provider. You may need an MRI of your neck *Continue to take medications as directed *Follow up with your primary care provider in 2-3 days or call [phone] *Return to ER if you should have increasing abdominal pain nausea or vomiting or any new, worsening or concerning symptoms Prescriptions: New ondansetron 4 mg tablet,disintegrating 4 mg PO Q8H PRN (Reason: nausea and vomiting) Qty: 10 0RF No Action cyclobenzaprine 10 mg tablet 10 mg PO TID PRN (Reason: muscle spasm) Qty: 14 0RF duloxetine 20 mg capsule,delayed release(DR/EC) 20 mg PO DAILY paliperidone 1.5 mg tablet extended release 24 hr 1.5 mg PO BID amoxicillin 500 mg capsule 500 mg PO TID Qty: 21 0RF Stand Alone Forms: Patient Portal/API
[2025-09-26 19:04] LABS: Add Manual Diff / Slide Review NO; Hematocrit 34.4 % (36-46); Hemoglobin 11.6 g/dL (12.0-16.0); Lymphocytes Absolute Auto 1600 /uL (1100-4500); Mean Corpuscular HGB Conc 33.6 % (30-36); Mean Corpuscular Hemoglobin 30.9 PG (26-34); Mean Corpuscular Volume 91.7 fL (80-100); Platelet Count 239 X10^3/uL (150-400)
[2025-09-26 19:13] LABS: Alanine Aminotransferase 18 IU/L (<35); Albumin 4.3 g/dL (3.5-5.0); Albumin Globulin Ratio 1.4 (1.0-2.8); Alkaline Phosphatase 72 U/L (38-126); Blood Urea Nitrogen 27 mg/dL (7-17); Calcium 9.3 mg/dL (8.4-10.2); Carbon Dioxide 27 mmol/L (22-32); Chloride 103 mmol/L (98-107); Estimated Glomerular Filt Rate > 60 mL/min (>60); Globulin 3.1 g/dL (1.7-4.1); Glucose 106 mg/dL (70-99); HEMOLYSIS < 15 (0-50); Lipase 71 U/L (23-300); Potassium 3.8 mmol/L (3.4-5.1); Sodium 137 mmol/L (137-145); Total Protein 7.4 g/dL (6.3-8.2)
[2025-09-26 20:51] VITALS: BP 133/84; PULSE 55; RESP 18; O2SAT 96
== END 2025-09-26 20:53 | disposition home or self-care (01) ==
PROVIDERS: Emergency Provider Emergency Medicine
DX: D18.03 Hemangioma of intra-abdominal structures (principal); K76.9 Liver disease, unspecified; F17.290 Nicotine dependence, other tobacco product, uncomplicated
CPT/HCPCS: 36415; 74177; 80053; 81003; 81015; 83690; 85025; 87077; 87086; 87186; 96374; 99284; J2405; Q9967